=== PATIENT | female | born 1985 | race Two or more races ===

== ENCOUNTER → 2024-06-29 | Outpatient (BNVA) | payer MEDICAID, SELFPAY | END | disposition home or self-care (01) | PROVIDERS: PCP Nurse Practitioner Family; Referring Provider Nurse Practitioner Family; Visit Provider Nurse Practitioner Family | DX: Z71.2 Person consulting for explanation of examination or test findings (principal); N85.8 Other specified noninflammatory disorders of uterus; R10.2 Pelvic and perineal pain | CPT/HCPCS: 99213 ==

== ENCOUNTER 2024-12-30 15:21 | Emergency (ER) | payer MEDICAID, SELFPAY ==
[2024-12-30 15:22] VITALS: BMI 21.9
[2024-12-30 15:42] VITALS: BP 113/63; PULSE 98; RESP 18; TEMP 37.1; O2SAT 100
--- NOTE | 2024-12-30 17:28 | PD.EDRME ---
Rapid Medical Screening Exam RME Arrival date/time: 12/30/24 15:21 39-year-old female presents to the emergency department for complaints of dysuria and constipation Chief Complaint: Urogenital-Female Time Seen by Provider: 12/30/24 15:46 Vital signs: Vital Signs Temperature 98.8 F 12/30/24 15:42 Pulse Rate 98 12/30/24 15:42 Respiratory Rate 18 12/30/24 15:42 Blood Pressure 113/63 12/30/24 15:42 Pulse Oximetry (%) 100 12/30/24 15:42 Oxygen Delivery Method Room Air 12/30/24 15:42
--- NOTE | 2024-12-30 18:22 | EDNOTE_ITS ---
ED Female Urogenital RME/HPI General Chief complaint: Urogenital-Female Stated complaint: BURNING W/URINATION Time Seen by Provider: 12/30/24 15:46 Source: patient Arrival date/time: 12/30/24 15:21 Mode of arrival: ambulatory Limitations: no limitations RME / HPI RME / HPI Narrative: 12/30/24 15:21 39-year-old female presents to the emergency department for complaints of dysuria and constipation DR. MONTOYA?S MAIN ED EVALUATION: 39-year-old female presenting to the emergency department via private auto who is presenting for chief complaint of dysuria, vaginal discharge, vaginal burning, and constipation x 2 days. Patient is sexually active and LMP was 12/07/24. No associated symptoms include fever, nausea, and vomiting. Patient denies any other associated symptoms or medical complaints. - PMH:?Denies - PSH: Denies - Social history: Denies - Current medications: Reviewed PCP is Unknown MD Complaint: dysuria, UTI and vaginal discharge Onset (ago): day(s) (1) Urinary Symptoms: dysuria Sexual activity: yes : no Last Menstrual Period: 12/07/24 EDC: 09/13/25 Associated symptoms: other (constipation) Related Data Home Medications ?Medication ?Instructions ?Recorded ?Confirmed No Known Home Medications 06/29/2406/10 Allergies Allergy/AdvReac Type Severity Reaction Status Date / Time NKA* Allergy Uncoded 12/30/24 15:24 Review of Systems Review of Systems Systems Reviewed: All systems reviewed, normal except as documented Constitutional Constitutional: Denies fever(s) Gastrointestinal Gastrointestinal: Reports constipation, Denies diarrhea, Denies nausea and Denies vomiting Genitourinary Genitourinary: Reports dysuria, Reports vaginal discharge and Reports other (vaginal burning) Past Medical History Social History SMOKING STATUS: Never smoker SECOND HAND EXPOSURE: Yes ED Exam General Limitations: Present no limitations Head Head exam: Present atraumatic, normocephalic and normal inspection Eye Eye exam: Present normal appearance, PERRL and EOMI; Absent nystagmus ENT ENT exam: Present normal exam, normal oropharynx, mucous membranes moist and TM's normal bilaterally Neck Neck exam: Present normal inspection, full ROM and trachea midline; Absent tenderness Chest Chest inspection: Present normal inspection and symmetric chest wall rise; Absent tenderness Respiratory Respiratory exam: Present normal lung sounds bilaterally; Absent respiratory distress, wheezes or stridor Cardiovascular Cardiovascular exam: Present regular rate, normal rhythm and normal heart sounds Abdominal Exam Abdominal exam: Present soft and normal bowel sounds; Absent distention, tenderness, guarding, rebound or rigidity Extremities Exam Extremities exam: Present normal inspection, full ROM and normal capillary refill; Absent tenderness or pedal edema Back Exam Back exam: Present normal inspection and full ROM; Absent tenderness, CVA tenderness (R) or CVA tenderness (L) Neurological Exam Neurological exam: Present alert, oriented X3, CN II-XII intact and normal gait Psychiatric Psychiatric exam: Present normal affect and normal mood; Absent depressed or anxious Skin Skin exam: Present warm, dry, intact and normal color; Absent rash Course Quality Measures none Orders Category Date Time Status Bedside COVID-19 Antigen Test NOW Care 12/30/24 21:09 Completed Bedside Influenza A&B Antigen Test NOW Care 12/30/24 21:10 Completed Chlamydia/GC/TV - PCR Stat Lab 12/30/24 18:13 Received HCG Qualitative,Urine Stat Lab 12/30/24 18:13 Completed UA, C/S IF [Urinalysis, C/S if Indicated] Stat Lab 12/30/24 18:13 Completed Urine Culture Stat Lab 12/30/24 18:13 Received Vital Signs Vital signs: Vital Signs Temperature 98.8 F 12/30/24 15:42 Pulse Rate 98 12/30/24 15:42 Respiratory Rate 18 12/30/24 15:42 Blood Pressure 113/63 12/30/24 15:42 Pulse Oximetry (%) 100 12/30/24 15:42 Oxygen Delivery Method Room Air 12/30/24 15:42 Urogenital - Female MDM Narrative MDM Narrative:: Scribe Attestation: 12/30/2024 Rosalba Hamilton am scribing for and in the presence of Dr. Montoya. Provider Notation: Although this document has been carefully reviewed, there may still be some phonetic and other typographical errors.? These errors are purely grammatical due to imperfections in the software program and should not be construed in any way to compromise the substance of the patient's medical care during this visit. 39-year-old female presenting to the emergency department via private auto who is presenting for chief complaint of dysuria, vaginal discharge, vaginal burning, and constipation x 2 days. ROS: Admits vaginal discharge, vaginal burning, constipation, dysuria. Denies fever, nausea, vomiting. Differential diagnoses includes UTI, Pyelonephritis, Vaginitis, STD. Patient data External records reviewed:: [facility] previous records (Reviewed prior ED records from 06/29/24. Patient was seen for Pelvic pain.) Clinical information provided by:: patient Social determinants that could affect healthcare access:: none Patient has the following chronic illnesses:: None reported How is presenting disease/condition affected by chronic disease/condition?: no chronic disease Evaluation data The following diagnostics were reviewed and interpreted by me:: lab results Lab and/or radiology exams considered but not ordered:: None Interpretation Summary: LABS Urine Clarity Turbid, Urine Protein 1+, Urine Blood 2+, Urine RBC 109, Urine WBC 600, Urine Bacteria 4+, Urine HCG Negative. Serology: Chlamydia, Gonorrhea, and Trichomonas pending. Medications / Prescriptions Medications or Prescriptions considered but not ordered:: None Medication administrations:: See above if any Consultations Consultation(s) initiated? (list below): No Diagnosis Urogenital Female Differential Diagnosis: urinary tract infection, vaginitis and other (UTI, Pyelonephritis, STD.) Admission Indicated Admission indicated?: not indicated Admission Request Was there a request for admission?: No Disposition Plan Disposition Plan: other (specify) (Patient eloped) Discharge Plan Plan Patient Disposition: Elopement Prescriptions/Referrals Prescriptions/Med Rec: No Action No Known Home Medications Referrals: No Primary/Family,Physician [Primary Care Provider] - In 1 week Patient/Caregiver Discharge Instructions Print Language: Greek
[2024-12-30 18:33] LABS: Collection Type, Urine Clean Catch
[2024-12-30 18:48] LABS: Bacteria,Urine 4+; Bilirubin,Urine Negative (Negative); Blood,Urine 2+ (Negative); Clarity,Urine Turbid (Clear/Hazy); Color,Urine Yellow (Lt Yel-Yel); Glucose, Urine Negative (Negative); Ketones,Urine Negative (Negative); Leukocyte Esterase,Urine Positive (Negative); Nitrite,Urine Positive (Negative); Protein,Urine 1+ (Neg - Trace); RBC,Urine 109 /hpf (0-3); Specific Gravity,Urine 1.022 (1.001-1.035); Squamous Epithelial Cell,Urine 1 /hpf (0-5); Urobilinogen,Urine Negative mg/dL (0.0-1.0); WBC,Urine 600 /hpf (0-5)
[2024-12-30 18:52] LABS: Culture Indicated,Urine Yes
[2024-12-30 19:05] LABS: HCG Qualitative,Urine Negative
[2024-12-30 20:53] VITALS: BP 106/82; PULSE 86; RESP 16; TEMP 36.9; O2SAT 100
--- NOTE | 2024-12-30 22:16 | PC.NURSE ---
went to check on pt at 2210 pt not in rm. hospital gown is laying on bed.
--- NOTE | 2024-12-30 22:25 | PC.NURSE ---
pt has not returned to . pt left without notifying staff.
[2024-12-31 08:32] LABS: Chlamydia trachomatis PCR Negative (Not Detect); Neisseria Gonorrhoeae DNA PCR Negative (Not Detect); Trichomonas Negative (Negative)
== END 2024-12-30 22:39 | disposition left against medical advice (07) ==
PROVIDERS: Nurse Practitioner Primary Care; Emergency Provider Emergency Medicine
DX: R30.0 Dysuria (principal); Z53.29 Procedure and treatment not carried out because of patient's decision for other reasons; K59.00 Constipation, unspecified
CPT/HCPCS: 81001; 81025; 87077; 87086; 87186; 87210; 87491; 87591; 87634; 87661; 99283

== ENCOUNTER 2024-12-31 09:17 | Emergency (ER) | payer MEDICAID, SELFPAY ==
[2024-12-31 09:18] VITALS: BMI 21.9
[2024-12-31 09:27] VITALS: BP 110/77; PULSE 99; RESP 16; TEMP 37.1; O2SAT 98
[2024-12-31] MEDS: cefTRIAXone SOD INJ 1,000 MG VIAL 1000 MG IM (09:46)
[2024-12-31] MEDS: LIDOCAINE HCL 1% 20 ML VIAL 2.1 ML INFL (09:46)
--- NOTE | 2024-12-31 10:02 | PD.EDFMALE ---
ED Female Urogenital RME/HPI General Chief complaint: Urogenital-Female Stated complaint: DYSURIA X2 DAYS Time Seen by Provider: 12/31/24 09:21 Arrival date/time: 12/31/24 09:17 39-year-old female with no significant medical problems presents emerged part today for complaints of dysuria ongoing x 2 days patient was seen by myself yesterday but eloped prior to final disposition Limitations: no limitations Related Data Home Medications ?Medication ?Instructions ?Recorded ?Confirmed No Known Home Medications 06/29/24 06/29/24 Previous Rx's ?Medication ?Instructions ?Recorded ciprofloxacin HCl 500 mg tablet 500 mg PO BID 7 days #14 tabs 12/31/24 phenazopyridine 100 mg tablet 100 mg PO TID 2 days #6 tabs 12/31/24 (Pyridium) polyethylene glycol 3350 17 17 g PO QDAY 3 days #119 grams 12/31/24 gram/dose oral powder (Miralax) Allergies Allergy/AdvReac Type Severity Reaction Status Date / Time No Known Allergies Allergy Verified 12/31/24 09:18 Review of Systems Review of Systems Systems Reviewed: All systems reviewed, normal except as documented Constitutional Constitutional: Reports system reviewed and no additional complaints, except as documented, Denies fever(s) and Denies headache(s) Eyes Eyes: Reports system reviewed and no additional complaints, except as documented and Denies blurry vision ENT Ears, Nose, Mouth, and Throat: Reports system reviewed and no additional complaints, except as documented, Denies headache(s), Denies nasal congestion and Denies nasal discharge Cardiovascular Cardiovascular: Reports system reviewed and no additional complaints, except as documented, Denies chest pain and Denies dyspnea Respiratory Respiratory: Reports system reviewed and no additional complaints, except as documented, Denies chest congestion, Denies cough and Denies dyspnea Gastrointestinal Gastrointestinal: Reports system reviewed and no additional complaints, except as documented, Denies abdominal pain and Reports constipation Genitourinary Genitourinary: Reports system reviewed and no additional complaints, except as documented, Denies abnormal vaginal bleeding and Reports dysuria Integumentary/Breasts Skin/Breast: Reports system reviewed and no additional complaints, except as documented and Denies rash Neurologic Neurologic: Reports system reviewed and no additional complaints, except as documented, Reports as per HPI and Denies headache(s) Past Medical History Social History SMOKING STATUS: Never smoker SECOND HAND EXPOSURE: Yes ED Exam General Limitations: Present no limitations General appearance: Present alert and in no apparent distress Head Head exam: Present atraumatic, normocephalic and normal inspection Eye Eye exam: Present normal appearance, PERRL and EOMI; Absent conjunctival injection ENT ENT exam: Present normal exam, normal oropharynx and mucous membranes moist Neck Neck exam: Present normal inspection, full ROM and trachea midline Chest Chest inspection: Present normal inspection and symmetric chest wall rise Respiratory Respiratory exam: Present normal lung sounds bilaterally; Absent respiratory distress Cardiovascular Cardiovascular exam: Present regular rate, normal rhythm and normal heart sounds Abdominal Exam Abdominal exam: Present soft and normal bowel sounds; Absent distention, tenderness, guarding, rebound, rigidity, Vickers's sign or tenderness at McBurney's Point Abdominal tenderness: Absent RUQ or RLQ Extremities Exam Extremities exam: Present normal inspection and full ROM Back Exam Back exam: Present normal inspection and full ROM Neurological Exam Neurological exam: Present alert, oriented X3, CN II-XII intact, normal gait and reflexes normal; Absent motor sensory deficit Psychiatric Psychiatric exam: Present normal affect and normal mood Skin Skin exam: Present warm, dry, intact and normal color; Absent rash Course Quality Measures none Orders Category Date Time Status Lidocaine 1% 20 ml [Xylocaine 1% 20 ML] Med 12/31/24 09:36 Discontinued 2.1 ml INFL X1 ONE cefTRIAXone [Rocephin] Med 12/31/24 09:36 Discontinued 1,000 mg IM X1 ONE Vital Signs Vital signs: Vital Signs Temperature 98.7 F 12/31/24 09:27 Pulse Rate 99 12/31/24 09:27 Respiratory Rate 16 12/31/24 09:27 Blood Pressure 110/77 12/31/24 09:27 Pulse Oximetry (%) 98 12/31/24 09:27 Oxygen Delivery Method Room Air 12/31/24 09:27 O2 saturation 98% room air within limits Urogenital - Female MDM Narrative MDM Narrative:: 39-year-old female with no significant medical problems presents emerged part today for complaints of dysuria ongoing x 2 days patient was seen by myself yesterday but eloped prior to final disposition STD testing as well as urinalysis obtained yesterday STD testing is negative Urinalysis consistent with UTI patient given a shot of Rocephin here and discharged home with course of antibiotics Patient also reports that she has had some constipation patient given a prescription for MiraLAX patient reports no vomiting Patient discharged home in no distress to follow-up with primary care doctor in the next 24 to 48 hours and for any worsening symptoms to return to the ER immediately Patient data External records reviewed:: [facility] previous records Clinical information provided by:: patient Social determinants that could affect healthcare access:: none Patient has the following chronic illnesses:: None How is presenting disease/condition affected by chronic disease/condition?: no chronic disease Evaluation data The following diagnostics were reviewed and interpreted by me:: lab results and radiology exam(s) Lab and/or radiology exams considered but not ordered:: Labs and radiology obtained Interpretation Summary: Reviewed by me Medications / Prescriptions Medications or Prescriptions considered but not ordered:: Given Medication administrations:: Medication Administration History Discontinued Medications Ceftriaxone Sodium (Ceftriaxone Sod Inj 1,000 Mg Vial) 1,000 mg IM X1 ONE Stop: 12/31/24 09:37 Last Admin: 12/31/24 09:46 Dose: 1,000 mg Documented By: DO Lidocaine HCl (Lidocaine Hcl 1% 20 Ml Vial) 2.1 ml INFL X1 ONE Stop: 12/31/24 09:37 Last Admin: 12/31/24 09:46 Dose: 2.1 ml Documented By: DO Given Consultations Consultation(s) initiated? (list below): No Diagnosis Urogenital Female Differential Diagnosis: urinary tract infection Most likely diagnosis given after review of the tests above:: UTI Admission Indicated Admission indicated?: not indicated Admission Request Was there a request for admission?: No Disposition Plan Disposition Plan: Discharge Discharge Attestation Discharge Attestation: The patient and all family members were given an opportunity to ask questions and understood the discharge instructions. Discharge instructions specifically effects, indications for sooner follow up or return to the emergency department, and the expected course of current diagnosis. Patient condition: Stable Discharge Plan Plan Patient Disposition: HOME (Self Care) Discharge Disposition comment: Stable Prescriptions/Referrals Prescriptions/Med Rec: New ciprofloxacin HCl 500 mg tablet 500 mg PO BID 7 Days Qty: 14 0RF polyethylene glycol 3350 [Miralax] 17 gram/dose powder 17 g PO QDAY 3 Days Qty: 119 0RF phenazopyridine [Pyridium] 100 mg tablet 100 mg PO TID 2 Days Qty: 6 0RF No Action No Known Home Medications Referrals: Ros[facility] [address] SEISMOMETER OPERATOR,Jayla N, SEISMOMETER OPERATOR [Primary Care Provider] - 01/01/25 Problem List Clinical Impression: UTI (urinary tract infection) Patient/Caregiver Discharge Instructions Education Materials: ED CYSTITIS Female Adult Additional Instructions: Please follow up with your primary care doctor in the next 24-48hrs for any worsening symptoms return here immediately Print Language: Turkish Stand Alone Forms: [facility] Award Info., Patient Portal Info Letter PA/SENIOR INFORMATION SECURITY CONSULTANT Supervising Physician PA/SENIOR INFORMATION SECURITY CONSULTANT Supervising Physician: Dr. barajas
== END 2024-12-31 10:22 | disposition home or self-care (01) ==
PROVIDERS: Emergency Provider Family Medicine; PCP Nurse Practitioner Family
DX: N39.0 Urinary tract infection, site not specified (principal)
CPT/HCPCS: 96372; 99283; J0696; J3490